=== PATIENT | female | born 1990 | race Caucasian/White ===

== ENCOUNTER 2023-05-07 12:52 | Emergency (ER) | payer OTHER, SELFPAY ==
--- NOTE | 2023-05-07 13:01 | ED.URI ---
HPI - URI/Sore Throat General Chief Complaint: Upper Respiratory Infection Stated Complaint: Cold symptoms Source: patient and RN notes reviewed Mode of arrival: ambulatory Limitations: no limitations History of Present Illness HPI Narrative: Patient is a 32-year-old female who presents to the [facility] complaints of nasal congestion, cough, and sore throat for past couple days. She reports a frequent nonproductive cough. She also endorses some mild chest congestion. She denies chest pain or shortness of breath. Patient also reports bilateral ear fullness. She denies recent fevers. Patient states that her children have been sick recently. She also attended a wedding where another guest recently tested positive for COVID. Her respirations are unlabored. Related Data Allergies Allergy/AdvReac Type Severity Reaction Status Date / Time Sulfa (Sulfonamide Allergy Rash Verified 05/07/23 13:04 Antibiotics) Review of Systems Review of Systems: CONSTITUTIONAL: Denies fever, chills, or sweats. EYES: Denies visual changes, redness, or discharge. ENT: Denies otalgia Reports ear fullness. Reports sore throat. Reports nasal congestion CARDIOVASCULAR: Denies chest pain, palpitations, or edema. RESPIRATORY: Reports cough but denies dyspnea. GASTROINTESTINAL: Denies abdominal pain, nausea, vomiting, or diarrhea. GENITOURINARY: Denies dysuria or hematuria. SKIN: Denies rash or itching. MUSCULOSKELETAL: Denies back pain, joint pain, or myalgia. NEUROLOGIC: Denies numbness or weakness. Reports headache. Pertinent positives per HPI. PMFSH Comments At the time of my signature, I reviewed and agree with the nursing past medical, surgical, social, and family history. There is no relevant family history pertinent to the patient complaint. Exam Narrative: GENERAL: This is a well-nourished, well-developed patient, in no apparent distress. HEAD: normocephalic, atraumatic. EYES: Sclera clear/white. Vision is grossly intact. EARS: External ears normal, auditory canals clear and without drainage, TMs normal without perforation. Hearing grossly intact. NOSE: External nose normal. Moderate congestion THROAT: Mucous membranes moist, oropharyngeal erythema without exudate or ulceration NECK: Neck supple, non-tender without lymphadenopathy, masses or thyromegaly. CARDIOVASCULAR: Regular rate and rhythm without murmurs, gallops, or rubs. RESPIRATORY: Clear to auscultation. Breath sounds equal bilaterally. No wheezes, rales, or rhonchi. GASTROINTESTINAL: Abdomen soft, non-tender, nondistended. Bowel sounds are active. No hepato-splenomegaly, or palpable masses. No guarding. SKIN: warm, intact with no suspicious lesions or rash, good texture and turgor. NEURO: awake, alert, and oriented to person, place and time. There were no obvious focal neurologic abnormalities. Course Course Level of Care: Express Care Visit Vital Signs Vital signs: Vital Signs Temperature 98.2 F 05/07/23 13:03 Pulse Rate 64 05/07/23 13:03 Respiratory Rate 16 05/07/23 13:03 Blood Pressure 105/70 05/07/23 13:03 Pulse Oximetry 100 05/07/23 13:03 Temperature 98.2 F 05/07/23 13:05 Pulse Rate 64 05/07/23 13:05 Respiratory Rate 16 05/07/23 13:05 Blood Pressure 105/70 05/07/23 13:05 Pulse Oximetry 100 05/07/23 13:05 Reviewed MDM - URI/Sore Throat MDM Narrative Medical decision making narrative: Rapid strep is negative in the office; however we will send to the lab for confirmation; there is a small percentage chance that it can come back positive; if it is, we will call you in 2-3days; and your prescription will be call in to your pharmacy. However, there is NO indication for antibiotic at this time. -Increase your fluids and Vitamin C. -Oral rinses such as: Salt water gargles and/or may use topical anesthetic (eg. Chloraseptic spray) or lozenges to relieve dryness or throat pain. -Take tylenol and ibuprofen as ne
[2023-05-07 13:03] VITALS: BP 105/70; PULSE 64; RESP 16; TEMP 36.8; O2SAT 100
[2023-05-07 13:05] VITALS: BP 105/70; PULSE 64; RESP 16; TEMP 36.8; O2SAT 100
== END 2023-05-07 13:51 | disposition home or self-care (01) ==
PROVIDERS: Emergency Provider Nurse Practitioner
DX: B34.9 Viral infection, unspecified (principal); Z20.822 Contact with and (suspected) exposure to COVID-19
CPT/HCPCS: 87081; 87426; 87880; 99213; C9803; G0463

== ENCOUNTER 2023-11-14 16:25 | Emergency (ER) | payer OTHER, SELFPAY ==
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
[2023-11-14 16:34] VITALS: BP 110/72; PULSE 79; RESP 16; TEMP 36.6; O2SAT 100
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
== END 2023-11-14 17:23 | disposition home or self-care (01) ==
PROVIDERS: Emergency Provider Nurse Practitioner Family
DX: T14.8XXA Other injury of unspecified body region, initial encounter (principal); S30.1XXA Contusion of abdominal wall, initial encounter; M25.512 Pain in left shoulder; V89.2XXA Person injured in unspecified motor-vehicle accident, traffic, initial encounter
CPT/HCPCS: 73030; 99213; G0463

== ENCOUNTER 2025-03-16 00:45 | Emergency (ER) | payer OTHER, SELFPAY ==
--- OUTSIDE RECORDS SUMMARY | 2025-03-16 00:48 | XMS_ITS | Clinical Summary ---
Author Organization [address] Address [address] [place] [id number] Care Team Providers Care Industrial Photographer Name Role Phone Charissa Hirsch NP Primary Care Provider [phone] Amilcar Yanez MD Unavailable [phone] Allergies Active Allergy Reactions Criticality Noted Date Comments Latex Peanut Unknown 01/21/2019 Sulfa (Sulfonamide Antibiotics) Rash Reaction: Rash, , , Reaction: Rash, , Sulfamethoxazole-Trimetho prim Rash,Hives Medium 06/03/2016 Medications ibuprofen (ADVIL,MOTRIN) 600 mg tablet Take 1 tablet (600 mg total) by mouth every 6 (six) hours as needed for pain 40 tablet 3 Active Additional Information Patient not taking.Reported on 10/14/2024 mupirocin (BACTROBAN) 2 % ointmentIndicati ons:Folliculitis Apply topically 3 (three) times a day 22 g 4 Active Additional Information Patient not taking.Reported on 10/14/2024 cyclobenzaprine (FLEXERIL) 10 mg tabletIndication s:Upper back pain on left side Take 1 tablet (10 mg total) by mouth 3 (three) times a day as needed for muscle spasms 30 tablet 4 Active Additional Information Patient not taking.Reported on 02/25/2024 triamcinolone (KENALOG) 0.1 % creamIndications :Rash and nonspecific skin eruption Apply to affected area 1-2 times daily as needed. Avoid face and groin. 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 Recommend Valtrex prophylaxis at 36 weeks. Dysfunction of eustachian tube 06/23/2016 Conductive hearing loss due to disorder of middl e ear 10/01/2015 Hearing loss 08/27/2015 Recurrent otitis media 04/25/2015 Overview (10/09/2016): Acute middle ear effusion, right Eczema 02/14/2014 Overview (10/09/2016): Eczema Resolved Problems Problem Noted Date Diagnosed Date Resolved Date renal anomaly, single gestation 09/28/2022 03/27/2023 Overview (01/27/2023): pelviectasis at 4.7 mm. Also upper normal left cerebral ventricle at 9 mm. Recheck ventricle in 4-6 weeks. 01/02: 7.3 mm pelviectasis. Ventricle is normal. History of precipitous delivery 08/06/2022 03/27/2023 Acute conjunctivitis of left eye 01/21/2019 07/27/2020 Assessment & Plan (01/21/2019 8:22 PM CDT): Use your eye drops or ointment as directed Practice good hand hygiene before and after administering medication Wash your hands if you touch your eye Do not touch the tip of the medication bottle to your eye Use artificial tears to help relieve itching or discomfort. Use Cool Compresses to help relieve itching or discomfort Do not wear contact lenses while being treated with eye medications. Throw away eye make up, do not share towels or other items that touch the eye May return to work/school after 24-48 hours after antibiotic treatment if bacterial if viral may require at least 5-7 days out of school/work. Notify the doctor or go to a brand specialist like an Cryptologic Technician Technical or Opthalmologist if develop significant pain, light sensitivity or vision loss. Follow up with PCP if you are not getting better in a 3-4 days Otitis media 06/23/2016 07/27/2020 Impacted cerumen 06/23/2016 07/27/2020 Common cold 04/25/2015 07/27/2020 Overview (10/09/2016): Acute nasopharyngitis Sinusitis 10/30/2014 07/27/2020 Overview (10/09/2016): Sinusitis Viral upper respiratory tract infection 08/30/2014 07/27/2020 Overview (10/09/2016): Viral URI Atopic rhinitis 01/05/2014 07/27/2020 Overview (10/09/2016): Allergic rhinitis Immunizations Immunization Administration Dates Next Due HPV, Bivalent 07/09/2015 HPV, Quadrivalent 03/30/2015 Influenza, Quadrivalent, Spl it, Preservative Free, Intramuscular 07/27/2020 MMR 01/03/2021(Deferred: No longer n eeded) Tdap 01/02/2023,11/09/2020 Surgical History Surgery Date Site/Laterality Comments TONSILLECTOMY Tonsillectomy TONSILLECTOMY Tonsillectomy OTHER SURGICAL HISTORY Cyst removal one on face and behind knee OTHER SURGICAL HISTORY Excision inflamed blood vessel, posterior knee WISDOM TOOTH EXTRACTION Oral Surgery Tooth Extraction [place] Tooth - (Added by TW Conv) [place] TONSILLECTOMY PRIMARY/SEC ONDARY <AGE 12 Tonsillectomy - (Added by TW Conv) Medical History Medical History Date Comments Allergy status to unspecifie d drugs, medicaments and biological substances status History of seasonal allergie s - (Added by TW Conv) Family History Medical History Relation Name Comments Diabetes Father Diabetes mellit us; /Family history of diabetes mellitus - (Added by TW Conv) Diabetes type II Father Diabetes me llitus type 2; Other Other No family histo ry of breast cancer; Relation Name Status Comments Father Other Social History Tobacco Use Types Packs/Day Years Used Date Smoking Tobacco: Never Smokeless Tobacco: Never Tobacco Cessation:Counseling Given: Not Answered Alcohol Use Standard Drinks/Week Comments Not Currently 0 (1 standard drink = 0.6 oz pur e alcohol) Humiliation, Afraid, Rape, and Kick questionnair e Answer Date Recorded Within the last year, have y ou been afraid of your partner or ex-partner? No 02/06/2023 Within the last year, have y ou been humiliated or emotionally abused in other ways by your partner or ex-partner? No Within the last year, have y ou been kicked, hit, slapped, or otherwise physically hurt by your partner or ex-partner? No 02/06/2023 Within the last year, have y ou been raped or forced to have any kind of sexual activity by your partner or ex-partner? No 02/06/2023 Social Connection and Isolation Panel Answer Date Recorded In a typical week, how many times do you talk on the phone with family, friends, or neighbors? More than three times a week 02/04/2023 How often do you get togethe r with friends or relatives? Once a week 02/04/2023 How often do you attend chur or jainism services? Never 02/04/2023 Do you belong to any clubs o r organizations such as yarsani groups, unions, fraternal or athletic groups, or school groups? No 02/04/2023 How often do you attend meet ings of the clubs or organizations you belong to? Never 02/04/2023 Are you , , di vorced, , never , or living with a partner? Living with partner 02/04/2023 AUDIT-C Answer Date Recorded Q1: How often do you have a drink containing alcohol? Never 02/04/2023 Q2: How many drinks containi ng alcohol do you have on a typical day when you are drinking? Patient does not drink Q3: How often do you have si x or more drinks on one occasion? Never 02/04/2023 Overall Financial Resource Strain (CARDIA) Answe r Date Recorded How hard is it for you to pa y for the very basics like food, housing, medical care, and heating? Not hard at all 02/04/2023 PHQ-2 Answer Date Recorded PHQ-2 Total Score (If total score is 3 or more points, staff should administer the PHQ-9) 0 10/14/2024 [facility] - Occupational Stress Questionnaire Answer Date Recorded Do you feel stress - tense, restless, nervous, or anxious, or unable to sleep at night because your mind is troubled all the time - these days? Only a little 02/04/2023 Exercise Vital Sign Answer Date Recorde d On average, how many days pe r week do you engage in moderate to strenuous exercise (like a brisk walk)? 1 day 02/04/2023 On average, how many minutes do you engage in exercise at this level? 30 min 02/04/2023 Hunger Vital Sign Answer Date Recorded Within the past 12 months, y ou worried that your food would run out before you got the money to buy more. Never true 02/05/20 23 Within the past 12 months, t he food you bought just didn't last and you didn't have money to get more. Never true 02/04/2023 PRAPARE - Transportation Answer Date Re corded In the past 12 months, has l ack of transportation kept you from medical appointments or from getting medications? No 08/2022 In the past 12 months, has l ack of transportation kept you from meetings, work, or from getting things needed for daily living? No 02/04/2023 Housing Stability Vital Sign Answer Telly e Recorded In the last 12 months, was t here a time when you were not able to pay the mortgage or rent on time? No 02/04/2023 In the last 12 months, how many places have you lived? 2 02/04/2023 In the last 12 months, was t here a time when you did not have a steady place to sleep or slept in a fpc (including now)? No 02/04/2023 [place] Depression Scale Answer Date Recorded [place] Depression Scale Total 0 02/06/2023 The thought of harming myself has occurred to me . Never 02/06/2023 Personal Safety Answer Date Recorded Have you ever been in or are you currently in a harmful physical or emotional relationship or is someone making you feel afraid or unsafe? Denies 02/04/2023 Comments No Sex and Gender Information Value Date Recorded Sex Assigned at Not on file Legal Sex Female 3:17 AM MORTAR MIXER Gender Identity Not on file Sexual Orientation Not on file Obstetrics History Para Term AB IAB SAB Ectopic Multiple Livin g Live Births 2 2 2 0 2 2 Date Outcome GA Total Labor Labor/2nd/3rd Weight Sex Type Anes PTL Stephanie A1 A5 Name Clin 2020 Term 39w 4d 1h 34m 0h 47m/0h 42m/0h 05m 3.023 kg (6 lb 10.6 oz) F Vag-Sp ont Epidur al N Livin g 7 9 GANSZ ,GIRL TIFFA [place] Brenden Saha MD Complications:Precipitous La bor (<3 hours) Delivery Location:[facility]) 2022 Term 39w 0d 5h 57m 5h 45m/0h 07m/0h 05m 4.2 kg (9 lb 4.2 oz) M Vagina l Epidur al N Livin g 9 9 GANSZ ,BOYT IFFAN Y Brenden Saha MD Complications:None Delivery Location:[facility]) Last Filed Vital Signs Vital Sign Reading Time Taken Comments Blood Pressure 122/72 10/14/2024 3:44 PM CDT Pulse 82 06/08/2024 5:37 PM MORTAR MIXER Temperature 36.7 C (98 F) 06/08/2024 5:37 PM MORTAR MIXER Respiratory Rate 16 06/08/2024 5:37 PM MORTAR MIXER Oxygen Saturation 99% 06/08/2024 5:37 PM MORTAR MIXER Inhaled Oxygen Concentration - - Weight 120.7 kg (266 lb) 10/14/2024 3:44 PM CDT Height 172.7 cm (5' 8) 10/14/2024 3:44 PM CDT Body Mass Index 40.45 10/14/2024 3:44 PM CDT Plan of Treatment Health Maintenance Due Date Last Done Comments Varicella Vaccines (1 of 2 - 13+ 2-dose series) 2002 HPV Vaccines (3 - 3-dose series) 10/01/2015 07/09/2015, 03/30/2015 Influenza Vaccine (#1) 2025 07/27/2020 Cervical Cancer Screening 10/14/20252024, 10/09/2023, 04/28/2023, Additional history exists Depression Screening 10/14/2025 10/14/2024, 10/09/2023, 02/06/2023, Additional history exists Regular Well Visit/Exam 18-64 10/14/2025 10/14/2024, 10/09/2023, 10/07/2021 DTaP/Tdap/Td Vaccine (8 - Td or Tdap) 01/02/2033 01/02/2023, 11/09/2020, 01/02/2011, Additional history exists Hepatitis B Screening Completed 04/02/2000 , 09/24/1999, 08/21/1999 Hepatitis C Screening Completed 08/06/2022, 020 Pneumococcal vaccine <65 Aged Out No longer eligible based on patient's age to complete this topic Procedures Procedure Name Priority Date/Time Associated Diagnosis Comments PAP WITH REFLEX TO HIGH RISK HPV Routine 10/14/2024 9:11 AM CDT Well woman exam HEPATITIS C ANTIBODY Routine 08/06/2022 2:28 PM MORTAR MIXER Encounter for supervision of other normal in first trimester from Last 3 Months or Most Recently Relevant to Health Maintenance Results * Pap with reflex to High Risk HPV and Genotyping (Cytology Component) (10/14/2024 9:11 AM CDT) Thin prep (Pap test) 10/14/2024 9:11 AM CDT 10/14/2024 9:11 AM CDT Narrative PATHOLOGY CH - 10/18/2024 10:20 AM CDT [facility] Department of Pathology [address] [place] [id number] Final Report Note to Patients: This report may contain a detailed description of human tissue sent by a health care provider to the laboratory for pathologic evaluation. The content of this report is essential for diagnosis and may provide important critical findings. This information may be unfamiliar to patients to review without a medical professional present. It is advised that the patient review this report in the presence of a health care provider who can answer questions and explain the details. Patient Name: LINDA PERALES Address: [address] [place] [address] Gender: F : 1990 (Age: 33) Service: Location: Hospital #: [id number] Patient Type: SPECIMEN Taken: 10/14/2024 Received: 10/14/2024 Accessioned:: 10/17/2024 Reported: 10/18/2024 Physician(s): MAXIMUS Sapp FNP Diagnosis: SOURCE OF SPECIMEN Imaged Thinprep Pap Test w/ Reflex HPV - Diet Consultant Cytologic Material: STATEMENT OF ADEQUACY - Satisfactory for evaluation; endocervical/transformation zone component present GENERAL CATEGORIZATION: - Negative for intraepithelial lesion or malignancy RAYNA Hopkins(ASCP) Report Electronically Reviewed and Signed Out By RAYNA Hopkins(ASCP) 10/18/2024 10:20:55Specimen(s) Received: A: Imaged Thinprep Pap Test w/ Reflex HPV - Diet Consultant Cytologic Material Clinical History: Last Menstrual Period: 10/08/2024 The Pap test is a screening test used to aid in the detection of cervical cancer and its precursors. It should not be the sole means by which malignant and premalignant lesions are diagnosed. Both false negative and false positive results may occur. It also has poor sensitivity for the detection of endometrial lesions and should not be used to evaluate suspected endometrial abnormalities. For these reasons it is most important to obtain Pap tests at regular intervals. The performance characteristics of some immunohistochemical stains, fluorescence in-situ hybridization tests and immunophenotyping by flow cytometry cited in this report (if any) were determined by the Surgical Pathology Department at [facility] as part of an ongoing quality assurance analyst program and in compliance with federally mandated regulations drawn from the Clinical Laboratory Improvement Act of 1988 (CLIA '88). Some of these tests rely on the use of analyte specific reagents and are subject to specific labeling requirements by the US Food and Drug Administration. Such diagnostic tests may only be performed in a facility that is certified by the Department of Health and Human Services as a high complexity laboratory under CLIA '88. The FDA has determined that such clearance or approval is not necessary. This test is used for clinical purposes. It should not be regarded as investigational or for research. Nevertheless, federal rules concerning the medical use of analyte specific reagents require that the following disclaimer be attached to the report: This test was developed and its performance characteristics determined by the Surgical Pathology Department [facility]. It has not been cleared or approved by the U. S. Food and Drug Administration. Lanny Newby NP LAB CYTOLOGY ORDERABLES Final Re sult Performing Organization Address City/[facility]/ZIP Co de Phone Number PATHOLOGY [address] [id number] * Hepatitis C antibody (08/06/2022 2:28 PM MORTAR MIXER) Hep C Ab Nonreactive Nonreactive DEEPIKA PAUL (JEREMY) Comment: Interpretive Data Nonreactive: Antibodies to HCV not detected. Does NOT exclude the possibility of recent exposure to HCV. Equivocal: Equivocal for HCV antibodies. Supplemental molecular testing will be automatically performed to determine infection status in accordance with current CDC screening recommendations. Reactive: Positive for HCV antibodies. This may represent current or past HCV infection. Supplemental molecular testing will be automatically performed to determine current infection status in accordance with current CDC screening recommendations. Interpretive data was last revised on 2019. Testing performed by: [facility], [address] [place] [address]., [id number] Blood 08/06/2022 2:28 PM MORTAR MIXER 08/06/2022 7:26 PM MORTAR MIXER Amilcar Yanez MD LAB MICROBIOLOGY - GENERAL ORDERABLES Final Result Performing Organization Address [facility] Co de Phone Number DEEPIKA PAUL (JEREMY) 1 [facility] Department [place] [address] from Last 3 Months or Most Recently Relevant to Health Maintenance Insurance [facility] Advance Directives For more information, please contact: [phone] * Full Code (Latest Code Status on File) Date Activated Date Inactivated Comments 02/04/2023 10:11 PM 02/06/2023 7:20 PM Full CPR in c ase of cardiopulmonary arrest * Full Code Date Activated Date Inactivated Comments 01/01/2021 6:10 AM 01/03/2021 5:11 PM Full CPR in c ase of cardiopulmonary arrest Care Teams Industrial Photographer Relationship Specialty Start Date End Date Charissa Hirsch NP [address] [place] [id number] PCP - General Nurse Practitioner 06/04/20 Amilcar Yanez MD [address] [place] [id number] Blow Machine Tender Starch Spraying Obstetrics and Gynecology 01/02/21
--- NOTE | 2025-03-16 00:58 | ED_ITS ---
HPI - Ear Problem General Chief complaint: Ear Stated complaint: ear pain Time Seen by Provider: 03/16/25 00:53 Source: patient Mode of arrival: ambulatory Limitations: no limitations History of Present Illness HPI Narrative: This is a 34-year-old female that presents to the emergency department for right ear pain. Reports she has had some sinus congestion the last couple of days. Her ear started hurting today which prompted her to be seen. Denies fevers or drainage. Related Data Allergies Allergy/AdvReac Type Severity Reaction Status Date / Time Sulfa (Sulfonamide Allergy Rash Verified 11/14/23 16:40 Antibiotics) Review of Systems Review of Systems: All systems reviewed & are unremarkable except as noted in HPI and below PMFSH Past Medical History Medical History (Updated 03/16/25 @ 01:01 by Laurie Valladares PA-C) No active medical problems Exam Narrative: GENERAL: Well-appearing, well-nourished, and in no acute distress. HEAD: Normocephalic, atraumatic. EYES: EOMI. ENT: Nares clear, no rhinorrhea or epistaxis. Mucous membranes moist. Oropharynx without tonsillar hypertrophy exudate or other lesions. Left TM pearly enamorado non-bulging. Right TM erythematous and bulging NECK: Supple. No adenopathy or masses. CHEST: Clear to auscultation. No respiratory distress. No wheezes rales or rhonchi HEART: Regular rate and rhythm. No murmur heard. Normal peripheral pulses. ABDOMEN: Soft, nontender, nondistended, normal active bowel sounds. EXTREMITIES: Normal range of motion. No edema. SKIN: Warm, dry, no rash. NEURO: No focal deficits. Alert and oriented x3. PSYCH: Normal mood and affect Medical Decision Making MDM Narrative Medical decision making narrative: Patient presents the emergency department for right ear pain. Exam consistent with otitis media. Will be started on oral antibiotics. She was given warnings to return to the ER Differential Diagnosis Differential Diagnosis: Otitis media, otitis externa Critical Care Time Critical Care Time Critical Care Time: No Discharge Plan Discharge Clinical Impression: Otitis media Qualifiers: Otitis media type: unspecified Chronicity: acute Qualified Code(s): H66.90 - Otitis media, unspecified, unspecified ear Patient Disposition: Home Condition: Stable Instructions: Antibiotic Form, Ear Infection (ED) Additional Instructions: Return to the emergency department for worsening symptoms, or any other concerns Take Tylenol or Motrin [id number] for pain as needed. Take oral antibiotics as prescribed Follow up with your primary care doctor Patient Language: Turkmen Prescriptions: New amoxicillin-pot clavulanate 875-125 mg tablet 1 tablet PO Q12H 5 Days Qty: 10 0RF No Action cyclobenzaprine 10 mg tablet 10 mg PO TID PRN (Reason: muscle spasm) Qty: 10 0RF ibuprofen 800 mg tablet 800 mg PO TID PRN (Reason: pain) Qty: 15 0RF Follow-up/Referrals: PHYSICIAN,ABORIGINAL CEREMONIAL CELEBRANT [Primary Care Provider, Internal Medicine] Maynor Sagastume MD [Physician, Family Practice]
[2025-03-16 01:02] VITALS: BP 131/90; PULSE 85; RESP 18; TEMP 37; O2SAT 100
== END 2025-03-16 01:15 | disposition home or self-care (01) ==
PROVIDERS: Emergency Provider Physician Assistant
DX: H66.90 Otitis media, unspecified, unspecified ear (principal)
CPT/HCPCS: 99283; A9270

== ENCOUNTER 2025-03-16 13:15 | Emergency (ER) | payer OTHER, SELFPAY ==
[2025-03-16 13:24] VITALS: BP 126/67; PULSE 79; RESP 16; TEMP 36.4; O2SAT 100
--- NOTE | 2025-03-16 13:29 | ED_ITS ---
HPI - Ear Problem General Chief complaint: Ear Stated complaint: R EARACHE Time Seen by Provider: 03/16/25 13:17 Source: patient Mode of arrival: ambulatory Limitations: no limitations History of Present Illness HPI Narrative: Linda is a 34-year-old female patient presenting to the clinic today with complaints of right ear pain. She reports she was seen last night in the ER for right ear pain at 0100 and dx with otitis media and was prescribed Augmentin. Went home and states around 0430 this morning her ear drum may have ruptured. Noticed drainage coming from her right ear. History of ear tubes in the past. States her pain and pressure has been relieved. Related Data Home Medications ?Medication ?Instructions ?Recorded ?Confirmed ?Last Taken ?Type cetirizine 5 mg-pseudoephedrine ER 1 tablet PO Q12H Unknown History 120 mg tablet,extended release,12hr (Zyrtec-D) Allergies Allergy/AdvReac Type Severity Reaction Status Date / Time Sulfa (Sulfonamide Allergy Rash Verified 03/16/25 14:04 Antibiotics) Review of Systems Review of Systems: Pertinent positives per HPI. Patient denies any fever, chills, rash, headache, visual changes, dizziness, cough, shortness of breath, chest pain, palpitations, nausea, vomiting, diarrhea, constipation, abdominal pain, or any urinary issues. [facility] Past Medical History Medical History No active medical problems Social History Social History Smoking status: Never smoker Alcohol intake: current Alcohol use details: 2 times a yr Substance use: current Substance use type: marijuana Comments At the time of my signature, I reviewed and agree with the nursing past medical, surgical, social, and family history. There is no relevant family history pertinent to the patient complaint. Exam Narrative: General: Well-developed, obese, in no apparent distress Head: Normocephalic, atraumatic Eyes: Pupils equally round and reactive to light bilaterally, EOM intact, sclera and conjunctive clear, no discharge, lids normal Ears: Left TMs intact and clear, left ear canal clear, no drainage, right TM rupture with yellowish discharge, grossly hearing normal. Nose: Nares patent, no discharge, no inflammation, no sinus tenderness. Mouth: Oral pharynx without lesions or masses, good dentition, MMM. Neck: Supple, trachea midline, no enlargement of anterior or posterior cervical nodes, no thyroid masses or goiter palpable. Cardio: Regular rate and rhythm, s1 and s2 normal, no murmur appreciated. Resp: Clear to auscultation bilaterally, no rhonchi, rales, wheezing or rubs Course Course Emergency Course: Portions of this record may have been created with voice recognition software. Level of Care: Express Care Visit Vital Signs Vital signs: Vital Signs Temperature 36.4 C 03/16/25 13:24 Pulse Rate 79 03/16/25 13:24 Respiratory Rate 16 03/16/25 13:24 Blood Pressure 126/67 03/16/25 13:24 Pulse Oximetry 100 03/16/25 13:24 Temperature 36.4 C 03/16/25 13:24 Pulse Rate 79 03/16/25 13:24 Respiratory Rate 16 03/16/25 13:24 Blood Pressure 126/67 03/16/25 13:24 Pulse Oximetry 100 03/16/25 13:24 Vital signs reviewed Medical Decision Making MDM Narrative Medical decision making narrative: At the time of visit patient is resting comfortably on the exam table. Patient appears to be nontoxic. Complaints of right ear pain. She reports she was seen last night in the ER for right ear pain at 0100 and dx with otitis media and was prescribed Augmentin. Went home and states around 0430 this morning her ear drum may have ruptured. Noticed drainage coming from her right ear. History of ear tubes in the past. States her pain and pressure has been relieved. Plan: I suspect patient has had a spontaneous rupture of the right eardrum. Contacted Dr. Bettencourt and case was discussed he is able to see the patient at 2:00 pm this afternoon. Will send in prescription for ear drops and have patient follow-up with Dr. Bettencourt as discussed. Supportive measures were discussed with the patient and they voiced understanding discharge instructions and agrees to treatment plan. Return precautions reviewed Differential Diagnosis Differential Diagnosis: Otitis media, otitis externa, eustachian tube dysfunction, cerumen impaction, upper respiratory infection, serous otitis, eardrum rupture Vital Signs Vital Signs: Vital Signs Temperature 36.4 C 03/16/25 13:24 Pulse Rate 79 03/16/25 13:24 Respiratory Rate 16 03/16/25 13:24 Blood Pressure 126/67 03/16/25 13:24 Pulse Oximetry 100 03/16/25 13:24 Temperature 36.4 C 03/16/25 13:24 Pulse Rate 79 03/16/25 13:24 Respiratory Rate 16 03/16/25 13:24 Blood Pressure 126/67 03/16/25 13:24 Pulse Oximetry 100 03/16/25 13:24 Discharge Plan Discharge Clinical Impression: Otitis media Qualifiers: Otitis media type: suppurative Chronicity: acute Laterality: right Recurrence: non-recurrent Spontaneous tympanic membrane rupture: with spontaneous rupture Qualified Code(s): H66.011 - Acute suppurative otitis media with spontaneous rupture of ear drum, right ear Patient Disposition: Home Condition: Stable Instructions: Antibiotic Form, Ruptured Eardrum (ED), Ear Infection (ED) Additional Instructions: Take any prescribed medications only as directed-ofloxacin ear drops Tylenol/motrin as needed for pain May use heating pad to alleviate pain Follow-up with Dr. Bettencourt at 2pm today Follow up with your PCP in 3-5 days if symptoms persist. Patient Language: Kyrgyz Prescriptions: New ofloxacin 0.3 % drops 5 drp otic (ear) BID 7 Days Qty: 5 0RF No Action amoxicillin-pot clavulanate 875-125 mg tablet 1 tablet PO Q12H 5 Days Qty: 10 0RF Follow-up/Referrals: PHYSICIAN,SOFTWARE ENGINEERING ASSOCIATE MANAGER [Primary Care Provider, Internal Medicine] Time of Disposition: 13:33 Quality NIHSS Nursing Documentation ED NIHSS nursing documentation: reviewed/agree
== END 2025-03-16 13:36 | disposition home or self-care (01) ==
PROVIDERS: Emergency Provider Nurse Practitioner Family
DX: H66.011 Acute suppurative otitis media with spontaneous rupture of ear drum, right ear (principal); F12.90 Cannabis use, unspecified, uncomplicated
CPT/HCPCS: 99213; G0463

== ENCOUNTER 2025-03-19 10:37 | Emergency (ER) | payer OTHER, SELFPAY ==
[2025-03-19 10:51] VITALS: BP 121/77; PULSE 78; RESP 16; TEMP 36.6; O2SAT 97
--- NOTE | 2025-03-19 11:19 | ED.EAR ---
HPI - Ear Problem General Chief complaint: Ear Stated complaint: R ear pain Time Seen by Provider: 03/19/25 11:19 Source: patient, RN notes reviewed and old records reviewed Mode of arrival: ambulatory Limitations: no limitations History of Present Illness HPI Narrative: 34-year-old female presents to the [facility] with wanting her right ear checked and to make sure she does not need additional antibiotics. Was evaluated in the ER, urgent care and by ENT on March 16, 3 days ago. Patient was prescribed Augmentin and ofloxacin ear drops. States that she still has a couple of days of Augmentin left. Has a follow-up with Dr. Bettencourt on . Related Data Home Medications ?Medication ?Instructions ?Recorded ?Confirmed ?Last Taken ?Type cetirizine 5 mg-pseudoephedrine ER 1 tablet PO Q12H 03/16/25 03/16/25 Unknown History 120 mg tablet,extended release,12hr (Zyrtec-D) Allergies Allergy/AdvReac Type Severity Reaction Status Date / Time Sulfa (Sulfonamide Allergy Rash Verified 03/19/25 10:41 Antibiotics) Review of Systems Review of Systems: All systems reviewed & are unremarkable except as noted in HPI and below Constitutional: Constitutional: Reports no additional constitutional complaints ENT: Reports as per HPI PMFSH Past Medical History Medical History No active medical problems Social History Social History Smoking status: Never smoker Alcohol intake: current Alcohol use details: 2 times a yr Substance use: current Substance use type: marijuana Comments At the time of my signature, I reviewed and agree with the nursing past medical, surgical, social, and family history. There is no relevant family history pertinent to the patient complaint. Exam Const: General: cooperative, healthy appearing, comfortable, no acute distress, well developed, alert and well nourished Nutritional Appearance: well nourished and obese Orientation/consciousness: patient oriented x3 Limitations: no limitations HENMT: Head: normal to inspection Ears: external ears normal and TM abnormal scarred on the right; not bulging and not erythematous Face/Nose/Sinus: Normal external nose present and No nasal discharge present Throat: posterior oropharynx normal, uvula midline and no uvular edema Eyes: General: appearance normal, both eyes and all related structures Alignment and Position: alignment normal Neck: Neck: normal visual inspection, full ROM, no lymphadenopathy and no meningeal signs Chest: Chest palpation & inspection: normal inspection of the chest Resp: Effort & Inspection: normal respiratory effort and able to speak in complete sentences Auscultation: clear to auscultation bilaterally, no crackles, no rales, no rhonchi and no wheezes Cardio: Rate: regular rate Skin: General skin exam: normal color and no rashes or lesions noted Neuro: General: patient oriented x3, gait normal, moves all extremities and no meningeal signs Cognition (Neuro): normal cognition Speech: normal speech Gait exam (Neuro): Normal gait present Extrem: General: normal to inspection, full ROM, capillary refill normal and normal gait Psych: Appearance: grossly normal and well kempt Mental Status: mental status grossly normal Speech and movement: Normal speech and movement present and Clear speech present Affect: normal affect Attitude: cooperative Course Course Level of Care: Express Care Visit Vital Signs Vital signs: Vital Signs Temperature 97.8 F 03/19/25 10:51 Pulse Rate 78 03/19/25 10:51 Respiratory Rate 16 03/19/25 10:51 Blood Pressure 121/77 03/19/25 10:51 Pulse Oximetry 97 03/19/25 10:51 Temperature 97.8 F 03/19/25 10:51 Pulse Rate 78 03/19/25 10:51 Respiratory Rate 16 03/19/25 10:51 Blood Pressure 121/77 03/19/25 10:51 Pulse Oximetry 97 03/19/25 10:51 Reviewed Medical Decision Making MDM Narrative Medical decision making narrative: Patient sitting comfortably in exam room. Patient is nontoxic, vitals stable. Patient presents wanting her right ear checked. Was seen on the , 3 days ago, started on antibiotic ear drops as well as a oral antibiotics. Patient was concerned that she might need additional antibiotics. Right TM is not bulging, not red. Scarring noted without signs of infection. No drainage is noted. Patient already has an appointment for follow-up on with ENT. Discharge instructions reviewed with patient, as well as provided in writing per nursing staff. The instructions also include specific and strict return/GO TO THE ER as well as f/u information. All questions have been answered, and the patient deny any further questions with discharge and discharge plan. Some parts of this dictation were generated by voice recognition software and may contain typographical and/or grammatical inaccuracies. Differential Diagnosis Differential Diagnosis: Ear check, otitis media, serous otitis, otitis externa, URI Medical Records Medical records reviewed: Yes I reviewed the external patient's medical records. Vital Signs Vital Signs: Vital Signs Temperature 97.8 F 03/19/25 10:51 Pulse Rate 78 03/19/25 10:51 Respiratory Rate 16 03/19/25 10:51 Blood Pressure 121/77 03/19/25 10:51 Pulse Oximetry 97 03/19/25 10:51 Temperature 97.8 F 03/19/25 10:51 Pulse Rate 78 03/19/25 10:51 Respiratory Rate 16 03/19/25 10:51 Blood Pressure 121/77 03/19/25 10:51 Pulse Oximetry 97 03/19/25 10:51 Reviewed Lab Data Lab results reviewed: Yes I reviewed the patient's lab results. Labs: Reviewed Critical Care Time Critical Care Time Critical Care Time: No Discharge Plan Discharge Clinical Impression: Earache symptoms in right ear Patient Disposition: Home Condition: Stable Instructions: Earache (ED) Additional Instructions: Continue taking medications as prescribed Follow-up with Dr. Bettencourt as already scheduled Patient Language: Maltese Prescriptions: No Action cetirizine-pseudoephedrine [Zyrtec-D] 5-120 mg tablet extended release 12 hr 1 tablet PO Q12H ofloxacin 0.3 % drops 5 drp otic (ear) . t.i.d. 7 Days Qty: 10 0RF Rx Instructions: Right ear, tragal pump after applying, let sit for 5 minutes amoxicillin-pot clavulanate 875-125 mg tablet 1 tablet PO Q12H 5 Days Qty: 10 0RF Follow-up/Referrals: Maciel Bettencourt MD [Physician, Ear, Nose, Throat] PHYSICIAN,DRAPERY AND UPHOLSTERY MEASURER [Primary Care Provider, Internal Medicine] Time of Disposition: 11:28
== END 2025-03-19 11:30 | disposition home or self-care (01) ==
PROVIDERS: Emergency Provider Nurse Practitioner
DX: H92.01 Otalgia, right ear (principal)
CPT/HCPCS: 99211; G0463